=== PATIENT | male | born 2005 | race Caucasian/White ===

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

== ENCOUNTER 2023-03-13 08:00 | Outpatient (RCR) | payer OTHER | END 2023-03-14 | disposition home or self-care (01) | LOC: WSOT | DX: S53.442D Ulnar collateral ligament sprain of left elbow, subsequent encounter (principal); X58.XXXD Exposure to other specified factors, subsequent encounter ==

== ENCOUNTER 2023-03-20 08:00 | Outpatient (RCR) | payer OTHER | END 2023-04-13 | disposition home or self-care (01) | LOC: WSOT | DX: S53.442D Ulnar collateral ligament sprain of left elbow, subsequent encounter (principal); X58.XXXD Exposure to other specified factors, subsequent encounter ==

== ENCOUNTER 2023-06-24 08:39 | Outpatient (RCR) | payer OTHER | END 2023-07-14 | LOC: MKS.ESL.OT | DX: S53.442D Ulnar collateral ligament sprain of left elbow, subsequent encounter (principal); S53.432 Radial collateral ligament sprain of left elbow; M24.022 Loose body in left elbow; X58.XXXD Exposure to other specified factors, subsequent encounter ==

== ENCOUNTER → 2023-08-14 | Outpatient (RCR) | payer OTHER | END | disposition home or self-care (01) | LOC: MKS.ESL.OT | DX: S53.442D Ulnar collateral ligament sprain of left elbow, subsequent encounter (principal); S53.432 Radial collateral ligament sprain of left elbow; M24.022 Loose body in left elbow; X58.XXXD Exposure to other specified factors, subsequent encounter ==

== ENCOUNTER 2023-09-18 08:35 | Outpatient (RCR) | payer OTHER | END 2023-10-13 | disposition home or self-care (01) | LOC: MKS.ESL.OT | DX: S43.432D Superior glenoid labrum lesion of left shoulder, subsequent encounter (principal); S53.442D Ulnar collateral ligament sprain of left elbow, subsequent encounter; M24.022 Loose body in left elbow; Z98.890 Other specified postprocedural states; X58.XXXD Exposure to other specified factors, subsequent encounter ==

== ENCOUNTER 2024-03-12 08:30 | Outpatient (RCR) | payer OTHER | END 2024-03-14 | disposition home or self-care (01) | LOC: MKS.ESL.PT | DX: M25.522 Pain in left elbow (principal) ==